=== PATIENT | male | born 1955 | race Hispanic/Latino ===

== ENCOUNTER 2023-12-15 17:23 | Inpatient (IN) | payer MEDICARE, MEDICAID ==
[~2023-12-15 17:23] MED LIST: Iopamidol-370 76% 500 ML MDV (1 ML CHARGE) ONE
[2023-12-15 17:37] LABS: #Eosinphils 0.1 thou/uL (0.0-0.7); #Monocytes 0.5 thou/uL (0.11-0.59); #Neutrophils 8.3 thou/uL (1.40-6.50); %Basophils 0.4 % (0.0-1.0); %Eosinophils 0.5 % (0.0-10.0); %Lymphocytes 18.6 % (21.0-51.0); %Monocytes 4.6 % (0.0-10.0); %Neutrophils 75.5 % (42.0-75.0); Hematocrit 40.2 % (42.0-52.0); Hemoglobin 13.4 g/dL (14.0-18.0); Mean Corpuscular HGB CONC 33.3 g/dL (32.0-36.0); Mean Corpuscular Hemoglobin 29.3 pg (27.0-31.0); Mean Platelet Volume 10.2 fL (7.4-10.4); Platelet Count 180 10x3/uL (130-400); RBC Distribution Width 13.2 % (11.5-14.5); Red Blood Cell (RBC) Count 4.57 mill/uL (4.70-6.10); White Blood Cell (WBC) Count 10.9 10x3/uL (4.8-10.8)
[2023-12-15 17:46] LABS: INR-International Normal Ratio 1.1; Prothrombin Time 14.3 sec (12.0-14.7)
[2023-12-15 17:47] LABS: PTT 26.2 sec (22.9-36.1)
[2023-12-15 17:51] LABS: ALT (SGPT) 20 U/L (8-55); AST (SGOT) 27 U/L (5-34); Albumin 3.9 g/dL (3.4-4.8); Alkaline Phosphatase 115 U/L (40-110); Anion Gap 17 mmol/L (10-20); BUN (Urea Nitrogen) 19 mg/dL (8.4-25.7); Bilirubin, Total 0.6 mg/dL (0.2-1.2); Calc. Creatinine Clearance 0 mL/min (70-130); Calcium 8.8 mg/dL (7.8-10.44); Carbon Dioxide 16 mmol/L (23-31); Chloride 107 mmol/L (98-107); Critical Call w/ Read Back NUR.KLS2@1750; Estimated GFR 51; Globulin 3.3 g/dL (2.4-3.5); Glucose 252 mg/dL (80-115); Potassium 3.4 mmol/L (3.5-5.1); Protein, Total 7.2 g/dL (5.8-8.1); Sodium 137 mmol/L (136-145)
[2023-12-15 17:55] LABS: Troponin I Less than 0.010 ng/mL (< 0.028)
[2023-12-15 18:38] LABS: CK (CPK) 672 U/L (30-200); Lipase 15 U/L (8-78); Magnesium 1.7 mg/dL (1.6-2.6)
[2023-12-15] MEDS ORDERED: Acetaminophen 325 MG TAB PO PRN (20:16)
[2023-12-15] MEDS ORDERED: Ondansetron PF 4 MG/2 ML Vial IVP PRN (20:16)
[2023-12-15] MEDS ORDERED: Acetaminophen 650 MG Suppository PR PRN (20:16)
[2023-12-15] MEDS ORDERED: hydrALAZINE 20 MG/ML VIAL SLOW IVP PRN (20:16)
[2023-12-15] MEDS ORDERED: Senokot S 8.6-50 MG TAB PO PRN (20:16)
[2023-12-15] MEDS ORDERED: Calcium Carbonate 500 MG ChewTAB PO PRN (20:16)
[2023-12-15] MEDS ORDERED: Lorazepam 2 MG/ML VIAL SLOW IVP PRN (20:23)
[2023-12-15] MEDS ORDERED: Dextrose 5% in Water 1,000 ML IV PRN (20:26)
[2023-12-15] MEDS ORDERED: HumaLOG 300 UNITS/3 ML VIAL SC PRN (20:26)
[2023-12-15] MEDS ORDERED: Glucagon 1 MG/ML KIT IM PRN (20:26)
[2023-12-15] MEDS ORDERED: Dextrose 50% Abboject 50 ML SYRINGE SLOW IVP PRN (20:26)
[2023-12-15] MEDS ORDERED: Sodium Chloride 0.9% 1,000 ML IV SCH (20:30)
[2023-12-15] MEDS ORDERED: Aspirin Chewable 81 MG TAB ONE (21:01)
[2023-12-15 21:16] LABS: Lactic Acid 1.8 mmol/L (0.5-2.2)
[2023-12-15 21:25] LABS: Troponin I Less than 0.010 ng/mL (< 0.028)
[2023-12-15] MEDS ORDERED: Aspirin 300 MG Suppository ONE (21:28)
[2023-12-15 23:10] VITALS: BMI 25.9
[2023-12-16 00:36] LABS: Troponin I Less than 0.010 ng/mL (< 0.028)
[2023-12-16 04:30] LABS: #Eosinphils 0.1 thou/uL (0.0-0.7); #Monocytes 0.6 thou/uL (0.11-0.59); #Neutrophils 6.4 thou/uL (1.40-6.50); %Basophils 0.4 % (0.0-1.0); %Eosinophils 0.9 % (0.0-10.0); %Monocytes 5.8 % (0.0-10.0); %Neutrophils 63.6 % (42.0-75.0); Hematocrit 38.4 % (42.0-52.0); Mean Corpuscular HGB CONC 33.9 g/dL (32.0-36.0); Mean Corpuscular Hemoglobin 29.7 pg (27.0-31.0); Mean Corpuscular Volume 87.7 fl (78.0-98.0); Mean Platelet Volume 10.6 fL (7.4-10.4); Platelet Count 193 10x3/uL (130-400); RBC Distribution Width 13.4 % (11.5-14.5); Red Blood Cell (RBC) Count 4.38 mill/uL (4.70-6.10); White Blood Cell (WBC) Count 10.1 10x3/uL (4.8-10.8)
[2023-12-16 04:46] LABS: Hemoglobin A1c 8.7 % (4.0-6.0)
[2023-12-16 05:00] LABS: ALT (SGPT) 19 U/L (8-55); AST (SGOT) 33 U/L (5-34); Albumin 3.6 g/dL (3.4-4.8); Alkaline Phosphatase 105 U/L (40-110); Anion Gap 14 mmol/L (10-20); BUN (Urea Nitrogen) 16 mg/dL (8.4-25.7); Bilirubin, Total 0.8 mg/dL (0.2-1.2); CK (CPK) 879 U/L (30-200); Calc. Creatinine Clearance 52 mL/min (70-130); Calcium 8.9 mg/dL (7.8-10.44); Carbon Dioxide 21 mmol/L (23-31); Cardiac Risk 3.1 (Less than 4.5); Chloride 108 mmol/L (98-107); Cholesterol 130 mg/dl (< 200 Desired); Estimated GFR 60; Globulin 3.4 g/dL (2.4-3.5); Glucose 177 mg/dL (80-115); HDL Cholesterol 42 mg/dL (>60 Neg Risk); LDL Cholesterol, Calculated 74 mg/dL; Potassium 3.6 mmol/L (3.5-5.1); Sodium 139 mmol/L (136-145); Triglycerides 68 mg/dL (Less than 150)
[2023-12-16] MEDS: Sodium Chloride 0.9% 1,000 ML IV SCH (10:00)
[2023-12-16] MEDS ORDERED: Enoxaparin 40 MG (0.4 mL) SYRINGE ONE (12:27)
[2023-12-16] MEDS ORDERED: Aspirin 81 mg Enteric Coated Tablet ONE (12:27)
[2023-12-16] MEDS: Aspirin 81 mg Enteric Coated Tablet PO SCH (12:52)
[2023-12-16] MEDS: Enoxaparin 40 MG (0.4 mL) SYRINGE SC SCH (12:52)
[2023-12-16] MEDS: Aspirin 300 MG Suppository PR SCH (12:53)
[2023-12-16] MEDS: HumaLOG 300 UNITS/3 ML VIAL SC PRN (12:53)
[2023-12-16] MEDS: Atorvastatin Calcium 40 MG TAB PO SCH (16:49)
[2023-12-16] MEDS: cefTRIAXone\\ROCEPHIN 1 GM in Sodium Chloride 0.9% 100 ML IVPB SCH (17:27)
[2023-12-16] MEDS: Potassium Chloride 20 MEQ in Premix 1 BAG IVPB SCH (17:28)
[2023-12-16] MEDS: Magnesium 2 GM/50 ML(in water) 2 GM in Premix 1 BAG IVPB SCH (17:28)
[2023-12-16] MEDS: Lactated Ringer's 1,000 ML IV SCH (22:27)
[2023-12-17] MEDS: Tamsulosin HCl 0.4 MG CAP PO SCH (10:48)
[2023-12-17] MEDS: Alogliptin 6.25 MG TAB PO SCH (10:48)
[2023-12-17] MEDS: Lisinopril 20 MG TAB PO SCH (10:48)
[2023-12-17] MEDS: levETIRAcetam 500 MG (5 mL) VIAL SLOW IVP SCH ×2 (10:59→20:10)
[2023-12-17] MEDS: Lactated Ringer's 1,000 ML IV SCH (11:00)
[2023-12-18 05:06] LABS: Anion Gap 9 mmol/L (10-20); BUN (Urea Nitrogen) 18 mg/dL (8.4-25.7); CK (CPK) 297 U/L (30-200); Calc. Creatinine Clearance 59 mL/min (70-130); Calcium 8.4 mg/dL (7.8-10.44); Carbon Dioxide 24 mmol/L (23-31); Chloride 111 mmol/L (98-107); Estimated GFR 69; Glucose 215 mg/dL (80-115); Sodium 140 mmol/L (136-145)
[2023-12-19 05:11] LABS: #Basophils Less than 0.03 10x3/uL (0.0-0.2); %Basophils 0.3 % (0.0-1.0); %Eosinophils 2.2 % (0.0-10.0); %Lymphocytes 35.4 % (21.0-51.0); %Monocytes 7.9 % (0.0-10.0); %Neutrophils 53.9 % (42.0-75.0); Hematocrit 36.8 % (42.0-52.0); Hemoglobin 12.1 g/dL (14.0-18.0); Mean Corpuscular HGB CONC 32.9 g/dL (32.0-36.0); Mean Corpuscular Volume 91.3 fL (78.0-98.0); Mean Platelet Volume 11.1 fL (7.4-10.4); Platelet Count 157 10x3/uL (130-400); RBC Distribution Width 13.4 % (11.5-14.5); Red Blood Cell (RBC) Count 4.03 mill/uL (4.70-6.10)
[2023-12-19 05:36] LABS: Anion Gap 10 mmol/L (10-20); BUN (Urea Nitrogen) 19 mg/dL (8.4-25.7); Calc. Creatinine Clearance 61 mL/min (70-130); Calcium 8.7 mg/dL (7.8-10.44); Carbon Dioxide 26 mmol/L (23-31); Chloride 110 mmol/L (98-107); Estimated GFR 73; Glucose 158 mg/dL (80-115); Potassium 4.2 mmol/L (3.5-5.1); Sodium 142 mmol/L (136-145)
[2023-12-19 15:27] VITALS: BP 133/58; TEMP 98.1
== END 2023-12-19 17:50 | disposition home or self-care (01) | DRG 101 ==
LOC: SUATTDRO 17:23 → ERS 17:23 → ERHOLD 20:17 → 2SE 12-16 17:22 → OBSVTOIN 12-17 09:50
PROVIDERS: ADMIT Internal Medicine; ATTEND Family Medicine
PROC: 4A00X4Z Measurement of Central Nervous Electrical Activity, External Approach (ICD-10-PCS; principal; 2023-12-16)
DX: R56.9 Unspecified convulsions (principal); N17.9 Acute kidney failure, unspecified; E87.20 Acidosis, unspecified; M62.82 Rhabdomyolysis; I10 Essential (primary) hypertension; E11.9 Type 2 diabetes mellitus without complications; E87.6 Hypokalemia; E86.0 Dehydration; G93.89 Other specified disorders of brain; N40.0 Benign prostatic hyperplasia without lower urinary tract symptoms; D64.9 Anemia, unspecified; Z79.84 Long term (current) use of oral hypoglycemic drugs; Z79.899 Other long term (current) drug therapy
CPT/HCPCS: 36415; 36416; 70450; 70496; 70498; 70551; 71045; 74177; 80048; 80053; 80061; 82550; 83036; 83605; 83690; 83735; 83880; 84146; 84443; 84484; 85025; 85610; 85730; 93005; 93306; 95816; 95819; 96372; G0378; J1650; J1815; J1953; J7050; J7120; Q9967